=== PATIENT | male | born 1975 | race African-American/Black ===

== ENCOUNTER 2024-11-22 08:31 | Outpatient (CLI) | payer OTHER, MEDICAID | END 2024-11-22 08:32 | disposition home or self-care (01) | LOC: CSHSLEEP 08:31 | PROVIDERS: ATTEND Orthopaedic Surgery | DX: G47.33 Obstructive sleep apnea (adult) (pediatric) (principal); R53.83 Other fatigue; R06.83 Snoring; G47.61 Periodic limb movement disorder | CPT/HCPCS: 95811 ==